=== PATIENT | male | born 2000 | race Caucasian/White ===

== ENCOUNTER 2022-05-29 10:29 | Outpatient (CLI) | payer OTHER, SELFPAY ==
--- NOTE | ~2022-05-29 | US_ITS ---
US scrotum INDICATION: Testicular pain TECHNIQUE: Testicular sonogram utilizing grayscale and color Doppler FINDINGS: The testes are normal in size and appearance. No focal lesions are seen. The right testes measures 3.9 x 2.5 x 2.1 cm centimeters, and the left testis measures 3.9 x 2.7 x 2.0 cm cm. There is normal vascular flow to both testes. The right and left epididymides appear normal. There is no varicocele or hydrocele. IMPRESSION: 1. NORMAL TESTICULAR ULTRASOUND. Reviewed, dictated and finalized at location A. [facility]
== END 2022-05-29 10:30 ==
PROVIDERS: PCP Emergency Medicine; Visit Provider Emergency Medicine
DX: N50.819 Testicular pain, unspecified (principal)
CPT/HCPCS: 76870

== ENCOUNTER 2022-06-25 13:29 | Emergency (ER) | payer OTHER, SELFPAY ==
[2022-06-25 13:34] VITALS: BP 127/75; PULSE 56; RESP 20; TEMP 36.9; O2SAT 100
--- NOTE | 2022-06-25 13:42 | ED.SKABFB ---
HPI - Skin/Abscess/Foreign Bdy General Chief complaint: Skin/Abscess/Foreign Body Stated complaint: Chaffing on left inner thigh Source: patient and RN notes reviewed History of Present Illness HPI narrative: 22 yo M presents to urgent care with complaints of a rash or chafing to his left groin area. Pt states it started yesterday. He has been applying vaseline and powder to the area with no relief. Pt reports associated itching and burning. Denies any new underwear, detergents, or soaps. Denies any fevers or other complaints. Related Data Allergies Allergy/AdvReac Type Severity Reaction Status Date / Time No Known Allergies Allergy Unverified 03/24/18 14:27 Review of Systems Review of Systems: CONSTITUTIONAL: Denies fever, chills, or sweats. EYES: Denies visual changes, redness, or discharge. ENT: Denies otalgia and sore throat CARDIOVASCULAR: Denies chest pain, palpitations, or edema. RESPIRATORY: Denies cough or dyspnea. GASTROINTESTINAL: Denies abdominal pain, nausea, vomiting, or diarrhea. GENITOURINARY: Denies dysuria or hematuria. SKIN: Reports left inner thigh rash MUSCULOSKELETAL: Denies back pain, joint pain, or myalgia. NEUROLOGIC: Denies headache, numbness, or weakness. [facility] Family History Family History (Updated 01/08/14 @ 07:13 by DOCTOR UNKNOWN) Other Hypertension Social History Social History Smoking status: Never smoker Alcohol intake: never Comments At the time of my signature, I reviewed and agree with the nursing past medical, surgical, social, and family history. There is no relevant family history pertinent to the patient complaint. Exam Narrative: GENERAL: This is a well-nourished, well-developed patient, in no apparent distress. HEAD: normocephalic, atraumatic. EYES: PERRL. Sclera clear/white. Vision is grossly intact. EARS: External ears normal, auditory canals clear and without drainage, TMs normal without perforation. Hearing grossly intact. NOSE: External nose normal with no obvious nasal discharge, nares without redness, no rhinorrhea. THROAT: Mucous membranes moist, posterior pharynx clear. NECK: Neck supple, non-tender without lymphadenopathy, masses or thyromegaly. CARDIOVASCULAR: Regular rate and rhythm without murmurs, gallops, or rubs. RESPIRATORY: Clear to auscultation. Breath sounds equal bilaterally. No wheezes, rales, or rhonchi. GASTROINTESTINAL: Abdomen soft, non-tender, nondistended. Bowel sounds are active. No hepato-splenomegaly, or palpable masses. No guarding. SKIN: erythemic, minimally raised, linear, streaks to left groin area. no drainage noted. NEURO: awake, alert, and oriented to person, place and time. There were no obvious focal neurologic abnormalities. EXTREMITIES: No clubbing, cyanosis, or edema. No joint tenderness, effusion, or edema noted. No calf tenderness. Negative Homans sign bilaterally. Course Course Level of Care: Express Care Visit Vital Signs Vital signs: Vital Signs Temperature 98.4 F 06/25/22 13:34 Pulse Rate 56 L 06/25/22 13:34 Respiratory Rate 20 06/25/22 13:34 Blood Pressure 127/75 06/25/22 13:34 Pulse Oximetry 100 06/25/22 13:34 Oxygen Delivery Room Air 06/25/22 13:34 Temperature 98.4 F 06/25/22 13:34 Pulse Rate 56 L 06/25/22 13:34 Respiratory Rate 20 06/25/22 13:34 Blood Pressure 127/75 06/25/22 13:34 Pulse Oximetry 100 06/25/22 13:34 Oxygen Delivery Room Air 06/25/22 13:34 Reviewed MDM - Skin/Abscess/Foreign Bdy MDM Narrative Medical decision making narrative: Apply steroid cream to area twice a day. Follow up with your voice instructor. Differential Diagnosis Differential diagnosis: Likely urticaria, cellulitis and contact dermatitis Critical Care Time Critical Care Time Critical Care Time: No Discharge Plan Discharge Clinical Impression: Rash Patient Disposition: Home, Self-Care Condition: Stable Instructions: Acute Rash (ED) Additional
== END 2022-06-25 13:49 | disposition home or self-care (01) ==
PROVIDERS: Emergency Provider Nurse Practitioner Family; PCP Emergency Medicine
DX: R21 Rash and other nonspecific skin eruption (principal)
CPT/HCPCS: 99203; G0463